=== PATIENT | female | born 1950 | race Caucasian/White ===

== ENCOUNTER 2024-03-14 06:21 | Day surgery (SDC) | payer MEDICARE, OTHER, SELFPAY ==
[2024-03-14] VITALS (10 sets, daily range): BP systolic 88–123; BP diastolic 36–102; BMI 45.9
[2024-03-14 07:18] LABS: Hematocrit 39.5 % (37.0-47.0); Hemoglobin 13.5 g/dL (12.0-16.0); Mean Corp Hgb Conc. 34.2 g/dL (33.0-37.0); Mean Corpuscular Hgb 30.8 pg (27.0-31.0); Platelet Count 146 10^3/uL (130-400); Red Blood Cell Count 4.39 10^6/uL (4.20-5.40); Red Cell Dist. Width 13.3 % (11.5-14.5)
[2024-03-14] MEDS: LOW STRENGTH ASPIRIN 81 MG PO (07:22)
[2024-03-14 07:24] LABS: ALT (SGPT) 14 U/L (0-35); AST (SGOT) 18 U/L (14-36); Albumin 4.2 g/dl (3.5-5.0); Alkaline Phosphatase 105 U/L (38-126); Blood Urea Nitrogen 26 mg/dl (7-17); Calcium 9.3 mg/dl (8.4-10.2); Carbon Dioxide 27 mmol/L (22-30); Chloride 104 mmol/L (98-107); Estimated Creatinine Clearance 57 ml/min; Glucose 108 mg/dl (70-99); Potassium 4.2 mmol/L (3.5-5.1); Sodium 138 mmol/L (135-145); Total Bilirubin 0.9 mg/dl (0.2-1.3); Total Protein 6.6 g/dl (6.3-8.2); eGFR 48.39
--- NOTE | 2024-03-14 08:08 | ITS.CL.CATH ---
[facility] - Catheterization
Cardiac Catheterization
Procedure Report:
LEFT HEART CATHETERIZATION
Date of Procedure: March 14, 2024
Procedures performed:
1: Coronary angiography
2: Left ventricular hemodynamic assessment
Primary Care Physician: Dr. Jodi Ruiz
Primary Non Profit Director: Dr. Juan J Patricia
INDICATION: The patient is a 73-year-old woman with a past medical history segment for morbid obesity who presents with a new cardiomyopathy. She is currently feeling better on medical therapy but is referred for coronary angiography to rule out
obstructive coronary disease in the setting of new LV systolic dysfunction.
ACCESS: The patient was prepped and draped in usual sterile fashion. A 5 Somali sheath was placed in the right radial artery using the Seldinger over the wire technique.
HEMODYNAMIC FINDINGS (mmHg):
LV(s/d,EDP): 120/8, 19
Ao(s/d,m): 120/67, 80
ANGIOGRAPHIC FINDINGS:
Single-plane Left Ventriculography in [facility] Projection: Not done
Coronary Angiography:
Dominance: Right
Left Main: Normal
Left Anterior Descending: The LAD is a medium caliber vessel that gives rise to a large high first diagonal branch. These vessels are widely patent with no focal disease and normal distal flow.
Left Circumflex: The left circumflex is a large-caliber nondominant vessel that gives rise to a very large branching major obtuse marginal branch. These vessels are widely patent with no focal disease and normal distal flow.
Right Coronary: The right coronary artery is a medium caliber dominant vessel that gives rise to a somewhat diminutive posterior descending artery and small posterior left ventricular branch. These vessels are widely patent with normal flow.
Fluoroscopy Time (min): 3.0
Radiation Dose (mGy): 369
DAP (Gy.cm2): 21
Closure device: None. A TR band was applied for hemostasis at the right wrist.
Complications: None.
ASSESSMENT:
1: No significant coronary artery disease. This is clearly a nonischemic cardiomyopathy.
CONCLUSIONS and RECOMMENDATIONS:
1: Medical therapy for a nonischemic cardiomyopathy with clinical follow-up as scheduled.
Sumaya Adame M.D.
Copy to: Dr. Jodi Ruiz
== END 2024-03-14 11:15 | disposition home or self-care (01) ==
LOC: CATH 06:21
PROVIDERS: ATTENDING PHYSICIAN Internal Medicine Interventional Cardiology; FAMILY PHYSICIAN Family Medicine; OTHER PHYSICIAN Internal Medicine
DX: I42.8 Other cardiomyopathies (principal); E66.01 Morbid (severe) obesity due to excess calories
CPT/HCPCS: 80053; 85027; 93458; C1769; C1894; Q9967